=== PATIENT | male | born 1975 | race Caucasian/White ===

== ENCOUNTER → 2016-11-23 | Outpatient (CLI) | payer BC, OTHER ==
[2016-11-23 20:14] LABS: BASO # 0.1 K/mm3 (0.0-0.2); BASO % 0.8 % (0.0-1.0); EOS # 0.4 K/mm3 (0.0-0.50); EOS % 5.3 % (0.0-3.0); LARGE UNSTAINED CELL # 0.2 K/mm3 (0.0-0.4); LARGE UNSTAINED CELL % 2.4 % (0.0-4.0); LYMPH # 1.8 K/mm3 (1.5-4.5); LYMPH % 23.6 % (24.0-44.0); MEAN CORPUSCULAR HEMOGLOBIN 30.4 pg (27.0-33.0); MEAN CORPUSCULAR HGB CONC 34.6 g/dl (32.0-36.5); MONO # 0.4 K/mm3 (0.0-0.8); MONO % 5.8 % (0.0-5.0); NEUTROPHILS # 4.6 K/mm3 (1.8-7.7); NEUTROPHILS % 62.1 % (36.0-66.0); PLATELET COUNT, AUTOMATED 174 k/mm3 (150-450); RED CELL DISTRIBUTION WIDTH 12.7 % (11.5-14.5); WHITE BLOOD COUNT 7.4 K/mm3 (4.0-10.0)
[2016-11-23 20:18] LABS: INR 0.99
== END ==
LOC: M ADAMS 18:39
PROVIDERS: ATTEND Physician Assistant Medical
DX: R23.3 Spontaneous ecchymoses (principal)

== ENCOUNTER → 2019-03-30 | Outpatient (CLI) | payer OTHER | LOC: M OUTALCOH 12:45 | PROVIDERS: ATTEND Psychiatry & Neurology Psychiatry | DX: Z13.9 Encounter for screening, unspecified (principal); F10.10 Alcohol abuse, uncomplicated ==

== ENCOUNTER 2019-04-09 07:51 | Outpatient (RCR) | payer OTHER | END 2019-04-25 | LOC: M OUTALCOH 07:51 | PROVIDERS: ATTEND Psychiatry & Neurology Psychiatry | DX: F10.10 Alcohol abuse, uncomplicated (principal) ==

== ENCOUNTER 2020-12-10 14:34 | Emergency (ER) | payer BC, OTHER ==
[~2020-12-10] VITALS: Ht 182.9 cm; Wt 109.1 kg
[2020-12-10] MEDS ORDERED: ESCITALOPRAM (14:50)
[2020-12-10] MEDS ORDERED: FAMO40TA3 (14:50)
[2020-12-10] MEDS ORDERED: INFANRIX VACCINE SYRINGE (DIPHTH/TET/ACEL PERTUS PEDIATRIC) (CPT 90700) IM ONE (15:50)
[2020-12-10] MEDS ORDERED: BOOSTRIX/ADACEL VACCINE (DIPHTH/PERTUSS/ACELL/TETANUS) 0.5ML SYR IM ONE (16:05)
--- NOTE | 2020-12-10 17:22 | REP ---
INDICATION: metal post hit top head, +LOC. COMPARISON: None. TECHNIQUE: CT BRAIN PERFORMED IN THE AXIAL PLANE. CORONAL RECONSTRUCTION IMAGES ARE PERFORMED. FINDINGS: LATERAL VENTRICLES ARE MIDLINE, SYMMETRIC AND WITHOUT DILATATION OR DISPLACEMENT. THERE IS NO THE CEREBRAL ATROPHY. THE BASAL GANGLIA ARE SYMMETRIC AND NORMAL 3RD AND 4TH VENTRICLES UNREMARKABLE WHITE MATTER TRACTS SHOW NO ATTENUATION ABNORMALITY AND ARE SYMMETRIC. THERE IS NO VASCULAR TERRITORY INFARCT, INTRACRANIAL HEMORRHAGE, MASS OR MASS EFFECT. BRAINSTEM AND CEREBELLUM ARE GROSSLY INTACT. THE BASAL CISTERNS ARE INTACT. MASTOID AERATION AND VISUALIZED FRONTAL/SPHENOID SINUSES WERE CLEAR. AIR-FLUID LEVEL IN THE RIGHT MAXILLARY ANTRUM AND SMALL MUCOSAL THICKENING IN THE POSTERIOR ASPECT LEFT MAXILLARY ANTRUM WELL A FEW ETHMOID AIR CELLS SHOW MUCOSAL THICKENING ANTERIORLY REPRESENTING ACUTE AND CHRONIC SINUS DISEASE. NO SINUS WALL OR NASAL BONE FRACTURE ON THE LIMITED EVALUATION OF THOSE AREAS NO EVIDENCE OF SCALP HEMATOMA, LINEAR OR DEPRESSED SKULL FRACTURE OR OTHER ACUTE BONY FINDING. IMPRESSION: ACUTE AND CHRONIC MAXILLARY SINUSITIS, RIGHT MUCH GREATER THAN LEFT AND WITH A FEW ETHMOID AIR CELLS WITH MUCOSAL THICKENING. OTHERWISE NEGATIVE NONCONTRAST CT BRAIN. NO SKULL FRACTURE, INTRACRANIAL BLEED OR OTHER ACUTE FINDING. <Electronically signed by Rudy Israel > 12/10/20 [id number]
[2020-12-10] MEDS ORDERED: ACETAMINOPHEN 500 MG TAB PO ONE (17:45)
[2020-12-10 18:00] VITALS: BP 127/69
--- NOTE | 2020-12-12 13:48 | ED PDOC ---
Post-Departure Follow-Up ct head report faxed to dr ellis for fu Gregoria De Guzman MD Dec 12, 2020 13:47
== END 2020-12-10 18:02 | disposition home or self-care (01) ==
LOC: M ED 14:34
DX: S01.01XA Laceration without foreign body of scalp, initial encounter (principal); W22.8XXA Striking against or struck by other objects, initial encounter; Y92.018 Other place in single-family (private) house as the place of occurrence of the external cause

== ENCOUNTER 2021-12-31 20:00 | Emergency (ER) | payer BC, OTHER ==
[~2021-12-31] VITALS: Ht 182.9 cm; Wt 109.0 kg
[~2021-12-31 20:00] MED LIST: ESCITALOPRAM; FAMO40TA3
[2021-12-31 20:02] VITALS: BP 136/85
== END 2021-12-31 22:06 | disposition home or self-care (01) ==
LOC: M ED 20:00
DX: S62.356A Nondisplaced fracture of shaft of fifth metacarpal bone, right hand, initial encounter for closed fracture (principal); W22.8XXA Striking against or struck by other objects, initial encounter; Y92.009 Unspecified place in unspecified non-institutional (private) residence as the place of occurrence of the external cause; K21.9 Gastro-esophageal reflux disease without esophagitis; Z79.899 Other long term (current) drug therapy